=== PATIENT | male | born 1970 | race Caucasian/White ===

== ENCOUNTER 2017-05-27 14:34 | Emergency (ER) | payer BC ==
[2017-05-27 14:40] VITALS: BMI 25.8
[2017-05-27] MEDS ORDERED: ASPIRIN PO ONE (14:46)
[2017-05-27] MEDS ORDERED: ASPIRIN 81 MG CHEWTAB ONE (14:48)
[2017-05-27 15:02] LABS: BASOPHILS # (AUTO) 0.1 X10^3/uL (0.0-0.1); BASOPHILS % (AUTO) 0.6 % (0.2-1.0); EOSINOPHILS # (AUTO) 0.1 x10^3/uL (0.0-0.2); EOSINOPHILS % (AUTO) 0.8 % (0.9-2.9); HEMATOCRIT 45.7 % (42.0-54.0); HEMOGLOBIN 15.7 g/dL (13.5-18.0); LYMPHOCYTES # (AUTO) 1.7 X10^3/uL (1.3-2.9); LYMPHOCYTES % (AUTO) 17.5 % (21.0-51.0); MEAN CORPUSCULAR HEMOGLOBIN 31.1 pg (27.0-34.0); MEAN CORPUSCULAR HGB CONC 34.3 g/dL (33.0-35.0); MEAN CORPUSCULAR VOLUME 90.7 fL (80.0-100.0); MEAN PLATELET VOLUME 8.8 fL (7.4-11.0); MONOCYTES # (AUTO) 0.4 x10^3/uL (0.3-0.8); MONOCYTES % (AUTO) 4.2 % (0.0-13.0); NEUTROPHILS # (AUTO) 7.4 x10^3/uL (2.2-4.8); NEUTROPHILS % (AUTO) 76.9 % (42.0-75.0); PLATELET COUNT 190 X10^3/uL (150.0-450.0); RED BLOOD COUNT 5.04 X10^6/uL (4.7-6.0); RED CELL DISTRIBUTION WIDTH 13.7 % (11.6-16.5); WHITE BLOOD COUNT 9.6 X10^3/uL (3.6-10.0)
--- NOTE | 2017-05-27 15:24 | DR.CP ---
HPI - Time Seen Time seen: 14:45 - PCP Primary Care Physician: JONATHAN MULLIGAN - Complaint Chief Complaint Doctor Comments: Chest pain for three days, left arm pain and neck pain Denies history of cardiopulmonary disease. Denies cigarettes Chief Complaint:: PT C/O CHEST PAIN FOR THE PAST FEW DAYS AND ITS A CONSTANT PRESSURE TO LEFT CHEST THAT WENT TO HIS NECK AND LEFT SHOULDER AND HIS HANDS ARE GOING NUMB.. Self Treatment fo Chief Complaint: MOTRIN TODAY.. - Source History Provided: Patient - Mode of Arrival Mode of Arrival: Ambulatory - Timing Onset of Chief Complaint: 05/24/17 - Location Chest Pain Radiation Location: Left Shoulder - Associated Signs and Symptoms Associated Signs and Symptoms: None PMH - PMH Past Medical History: Yes Past Medical History: Hypertension Past Surgical History: Yes Surgical History: Ortho Surgery Past Surgical History Comment: LEFT - Family History History of Family Medical Conditions: No Family Medical History: Diabetes Mellitus, Cancer, ID, Coronary Artery Disease, Heart Failure, Hypertension - Social History Does patient currently use any type of tobacco product: Yes Have you used tobacco products in the last 12 months: Yes Type of Tobacco Use: Cigarettes How many years tobacco product used: 6 Does any household member use tobacco: No Alcohol Use: Rarely Do you use any recreational Drugs:: No Lives With: Family Lives Where: Home - infectious screening In the last 2 months have you had wt loss of >10#?: NO Have you had fever, night sweats or hemotysis?: No Have you traveled outside the country in the last 6 months?: No Isolation: Standard ROS - Review of Systems Eyes: No Symptoms Reported ENTM: No Symptoms Reported Respiratoy: No Symptoms Reported Cardiovascular: No Symptoms Reported Gastrointestinal/Abdominal: No Symptoms Reported Genitourinary: No Symptoms Reported Neurological: No Symptoms Reported Musculoskeletal: Neck, Shoulder Integumentary: No Symptoms Reported Hematologic/Lymphatic: No Symptoms Reported Endocrine: No Symptoms Reported Psychiatric: No Symptoms Reported All Other Systems: Reviewed and Negative PE - Vitals Vitals: Temperature 98.4 F Pulse Rate [Right Brachial] 66 Pulse Rate 71 Respiratory Rate 18 Blood Pressure [Right Arm] 113/63 Blood Pressure 138/90 O2 Sat by Pulse Oximetry 100 - General Limitations: No Limitations General Appearance: Alert, In No Apparent Distress - Head Head Exam: Normal Inspection, Atraumatic - Eyes Eye exam: Normal Appearance, PERRL, EOMI - ENT ENT Exam: Normal Exam - Chest Chest Inspection: Normal Inspection, Symmetric Chest Wall Rise - Respiratory Respiratory Exam: Normal Lung Sounds Bilat Respiratory Exam: Bilateral Clear to Auscultation - Cardiovascular Cardiovascular Exam: Regular Rate, Normal Rhythm Pulse: Normal Edema: Normal - Abdominal Exam Abdominal Exam: Normal Inspection, Normal Bowel Sounds Abdominal Tenderness: negative: RUQ, RLQ, LUQ, LLQ, Epigastrium, Suprapubic, Diffuse, Mild, Moderate, Severe, Other - Extremities Extremities Exam: Normal Inspection - Back Back Exam: Normal Inspection, Full ROM, Muscle Spasm, Paraspinal Tenderness - Neurologic Neurological Exam: Alert, Oriented X3, CN II-XII Intact - Psychiatric Psychiatric Exam: Normal Affect ROR - Labs Reviewed Result Diagrams: 05/27/17 14:55 05/27/17 14:55 Laboratory: WBC 9.6 X10^3/uL (3.6-10.0) 05/27/17 14:55 RBC 5.04 X10^6/uL (4.7-6.0) 05/27/17 14:55 Hgb 15.7 g/dL (13.5-18.0) 05/27/17 14:55 Hct 45.7 % (42.0-54.0) 05/27/17 14:55 MCV 90.7 fL (80.0-100.0) 05/27/17 14:55 MCH 31.1 pg (27.0-34.0) 05/27/17 14:55 MCHC 34.3 g/dL (33.0-35.0) 05/27/17 14:55 RDW 13.7 % (11.6-16.5) 05/27/17 14:55 Plt Count 190 X10^3/uL (150.0-450.0) 05/27/17 14:55 MPV 8.8 fL (7.4-11.0) 05/27/17 14:55 Neut % 76.9 % (42.0-75.0) H 05/27/17 14:55 Lymph % 17.5 % (21.0-51.0) L 05/27/17 14:55 [place] % 4.2 % (0.0-13.0) 05/27/17 14:55 Eos % 0.8 % (0.9-2.9) L 05/27/17 14:55 Baso % 0.6 % (0.2-1.0) 05/27/17 14:55 Neut # 7.4 x10^3/uL (2.2-4.8) H 05/27/17 14:55 Lymph # 1.7 X10^3/uL (1.3-2.9) 05/27/17 14:55 [place] # 0.4 x10^3/uL (0.3-0.8) 05/27/17 14:55 Eos # 0.1 x10^3/uL (0.0-0.2) 05/27/17 14:55 Baso # 0.1 X10^3/uL (0.0-0.1) 05/27/17 14:55 Absolute Nucleated RBC 0.0 /100WBC 05/27/17 14:55 INR Target Range - 05/27/17 14:55 INR 0.97 (0.8-1.3) 05/27/17 14:55 PTT 27.1 SECONDS (22.9-36.5) 05/27/17 14:55 PTT Comment - 05/27/17 14:55 Sodium 139 mmol/L (136-145) 05/27/17 14:55 Corrected Sodium 139 mmol/L (136-145) 05/27/17 14:55 Potassium 4.3 mmol/L (3.5-5.1) 05/27/17 14:55 Chloride 104 mmol/L (98-107) 05/27/17 14:55 Carbon Dioxide 25.8 mmol/L (21-32) 05/27/17 14:55 BUN 10 mg/dL (7-18) 05/27/17 14:55 Creatinine 1.20 mg/dL (0.70-1.30) 05/27/17 14:55 Est GFR (MDRD) Af Amer > 60 (>60) 05/27/17 14:55 Est GFR (MDRD) Non-Af > 60 (>60) 05/27/17 14:55 Glucose 117 mg/dL (65-99) H 05/27/17 14:55 Calcium 9.3 mg/dL (8.5-10.1) 05/27/17 14:55 Corrected Calcium TNP 05/27/17 14:55 Magnesium 1.9 mg/dL (1.7-2.9) 05/27/17 14:55 Total Bilirubin 0.40 mg/dL (0.2-1.0) 05/27/17 14:55 AST 23 Units/L (15-37) 05/27/17 14:55 ALT 25 Units/L (12-78) 05/27/17 14:55 Alkaline Phosphatase 145 Units/L (46-116) H 05/27/17 14:55 Creatine Kinase 102 Units/L (39-308) 05/27/17 14:55 CK-MB (CK-2) < 1.0 ng/mL (0-4.0) 05/27/17 14:55 CK/CKMB % Calc 1.0 % (<4) 05/27/17 14:55 Troponin I < 0.02 ng/mL (0-1.5) 05/27/17 14:55 Total Protein 7.3 g/dL (6.4-8.2) 05/27/17 14:55 Albumin 3.8 g/dL (3.4-5.0) 05/27/17 14:55 Globulin 3.5 g/dL (2.5-4.5) 05/27/17 14:55 Albumin/Globulin Ratio 1.1 Ratio (1.1-2.1) 05/27/17 14:55 - XRAY XRAY Interpreted by: Radiologist (Chest: No acute cardiopulmonary disease) - Diagnosis Discharge Problem: Angina at rest - Discharge Plan Condition: Stable - Follow ups/Referrals Follow ups/Referrals: ESTELITA CASTILLO [Primary Care Provider] - 3 days - Instructions
--- NOTE | 2017-05-27 15:26 | RAD ---
AP Chest Indication: Chest pain Comparison: None available Findings: The trachea is midline. The cardiac silhouette is unremarkable. The lungs are clear without focal i nfiltrate or effusion. The bony thorax is unremarkable. IMPRESSION: 1. No acute cardiopulmonary abnormality. Reported By:
[2017-05-27 15:36] LABS: BLOOD UREA NITROGEN 10 mg/dL (7-18); CALCIUM 9.3 mg/dL (8.5-10.1); CARBON DIOXIDE 25.8 mmol/L (21-32); CHLORIDE 104 mmol/L (98-107); COR NA(FOR HYPERGLY) 139 mmol/L (136-145); SODIUM 139 mmol/L (136-145); TROPONIN I < 0.02 ng/mL (0-1.5); eGFR BLACK RACES > 60 (>60); eGFR NON BLACK RACES > 60 (>60)
[2017-05-27 15:40] LABS: ALANINE AMINOTRANSFERASE 25 Units/L (12-78); ALBUMIN 3.8 g/dL (3.4-5.0); ALKALINE PHOSPHATASE 145 Units/L (46-116); ASPARTATE AMINO TRANSFERASE 23 Units/L (15-37); CREATINE KINASE 102 Units/L (39-308); CREATINE KINASE MB < 1.0 ng/mL (0-4.0); MAGNESIUM 1.9 mg/dL (1.7-2.9); TOTAL PROTEIN 7.3 g/dL (6.4-8.2)
[2017-05-27] MEDS ORDERED: NITROSTAT SL PRN (17:15)
[2017-05-27 17:23] VITALS: BP 113/63
== END 2017-05-27 19:06 | disposition home or self-care (01) ==
LOC: ER 14:45
DX: I20.9 Angina pectoris, unspecified (principal)
CPT/HCPCS: 36415; 71010; 80053; 82550; 82553; 83735; 84484; 85025; 85610; 85730; 93005; 93010; 96365; 99283; A4222